=== PATIENT | female | born 1990 | race African-American/Black ===

== ENCOUNTER 2023-05-28 09:19 | Emergency (ER) | payer MEDICAID ==
[~2023-05-28] VITALS: Ht 172.7 cm; Wt 78.0 kg
[2023-05-28 09:56] VITALS: TEMP 99
[2023-05-28 11:15] VITALS: BP 93/60; PULSE 64; RESP 15
[2023-05-28] MEDS ORDERED: KETOROLAC 30MG/ML VIAL IM ONE (11:15)
[2023-05-28] MEDS ORDERED: BENZ1LOZ73 MT (11:51)
[2023-05-28] MEDS ORDERED: IBUP-2029 MT (11:51)
== END 2023-05-28 12:19 | disposition home or self-care (01) ==
LOC: ER 09:19
DX: J02.9 Acute pharyngitis, unspecified (principal); R05.9 Cough, unspecified; Z20.822 Contact with and (suspected) exposure to COVID-19
CPT/HCPCS: 99283; 87426; 81025; 87430; 87070; 87077; 96372; J1885; C9803